=== PATIENT | male | born 1965 | race Caucasian/White ===

== ENCOUNTER 2018-09-07 21:20 | Emergency (ER) | payer BC ==
[2018-09-07] MEDS: IBUPROFEN 600 MG TAB PO (21:56)
[2018-09-07] MEDS: DEXAMETHASONE 10 MG/ML 1 ML INJ IM (21:57)
[2018-09-07] MEDS: ALBUTEROL 0.5% (NEB) 2.5 MG/0.5 ML AMP INH (22:10)
[2018-09-07] MEDS: IPRATROPIUM (NEB) 0.5 MG/2.5 ML AMP INH (22:10)
[2018-09-07] MEDS: LIDOCAINE/MYLANTA 40 ML BTL PO (23:38)
[2018-09-07] MEDS: LORAZEPAM 1 MG TAB PO (23:57)
[2018-09-07] MEDS: KETOROLAC 60 MG INJ IM (23:57)
== END 2018-09-08 00:51 | disposition home or self-care (01) ==
LOC: FTE 09-08 00:51
DX: J20.9 Acute bronchitis, unspecified (principal); K12.2 Cellulitis and abscess of mouth
CPT/HCPCS: 71045; 94644; 96372; 99284-25